=== PATIENT | female | born 1935 | race Caucasian/White ===

== ENCOUNTER → 2018-03-18 | Outpatient (CLI) | payer MEDICARE | LOC: GMAM 14:26 | PROVIDERS: ATTEND Family Medicine | DX: R51 Headache (principal); R53.83 Other fatigue ==

== ENCOUNTER → 2018-03-20 | Outpatient (CLI) | payer OTHER ==
--- NOTE | 2018-03-20 16:06 | MRI ---
EXAM DESCRIPTION: Brain w/wo Contrast: Magnetic Resonance Imaging. CLINICAL HISTORY: 82 years Female HEADACHE COMPARISON: None. TECHNIQUE: Multiplanar, high-field MRI, multiple conventional sequences, without and with gadolinium IV contrast. No adverse reactions. Multiple axial diffusion sequences. FINDINGS: Tiny bilateral small foci of hyperintense FLAIR and T2-weighted signal in the periventricular white matter, more numerous than in the alexander-white matter junctions. Normal signal in the bilateral basal ganglia. No hemorrhage, no cerebral edema, no mass-effect. Normal contrast enhancement. Normal signal in the brainstem and cerebellar hemispheres. No hemorrhage, no cerebral edema, no mass-effect. Normal contrast enhancement. Concordance of the diffusion and non-diffusion sequences with no evidence of acute or subacute infarction. Cortical sulci, ventricles, and other CSF spaces, and the subdural spaces are minimally prominent, but age appropriate. No effacement or displacement. No midline shift. No extra-axial hemorrhage. Normal contrast enhancement. Normal flow signal void in the major vessels of the [place], and the venous sinuses. IACs are symmetric bilaterally. No fluid in the bilateral mastoid air cells. No mass effect in the bilateral Cerebellopontine angles. Normal contrast enhancement. Pituitary gland occupies most of the sella. Normal contrast enhancement. Base of the cerebellar tonsils is at the level of the foramen magnum. Minimal mucoperiosteal thickening in some of the paranasal sinus cavities. No air-fluid levels. The bony calvarium is intact. Minimal susceptibility artifact in the left frontal vertex, most obvious on the T2*GRE sequence. IMPRESSION: Small bilateral symmetric white matter changes are most likely age-related, and possibly cerebral microvascular disease. No hemorrhage, no abnormal contrast enhancement, and no diffusion restriction. No extra-axial hemorrhage or fluid. Normal noncontrast MRI diffusion study with no evidence of acute or subacute infarction. Minimal chronic paranasal sinusitis. Electronically signed by: Bishnu Munoz MD 03/20/2018 4:04 PM [facility] [employer]
== END ==
LOC: MRI 10:27
PROVIDERS: ATTEND Family Medicine
DX: R51 Headache (principal)

== ENCOUNTER → 2019-08-13 | Outpatient (CLI) | payer MEDICARE | LOC: GMAM 11:48 | PROVIDERS: ATTEND Family Medicine | DX: R71.8 Other abnormality of red blood cells (principal) ==

== ENCOUNTER 2019-10-01 05:37 | Day surgery (SDC) | payer MEDICARE ==
[2019-10-01] MEDS ORDERED: LIDOCAINE 1% 10 ML VIAL INJ ONE (05:38)
[2019-10-01] MEDS ORDERED: PROPOFOL 200 MG/20 ML VIAL IV ONE (05:38)
[2019-10-01] MEDS ORDERED: LACTATED RINGERS 1,000 ML ONE (06:42)
[2019-10-01 12:02] VITALS: O2SAT 99
[2019-10-01 12:42] VITALS: BP 158/76; TEMP 97.6
--- NOTE | 2019-10-01 13:05 | OP ---
DATE OF PROCEDURE: 10/01/19 PREOPERATIVE DIAGNOSIS: 1. Hemoccult positive stool. POSTOPERATIVE DIAGNOSIS: 1. Hemoccult positive stool. PROCEDURE: 1. Colonoscopy. SURGEON: Molina Yip MD ANESTHESIA: General. FINDINGS: Normal colon. PLAN: Discharge. INDICATION: This is an 84-year-old woman with no history of known colon problems, but she came in with occult positive stools. In discussion with her and her , we do want to screen and make sure there is nothing significant in her colon. PROCEDURE: She was brought to the Operating Suite in the lateral position. General anesthesia was induced, which is monitored. She did have some external hemorrhoids, but nothing abnormal there. Digital rectal exam revealed no masses. The colonoscope was inserted and advanced all the way to the cecum as identified by the ileocecal valve and appendiceal orifice. There was a good prep. Upon withdrawal, all mucosal surfaces appeared normal. There was no significant diverticulosis, maybe just a couple of small ones and no tumor or polyps were seen. We desufflated along the way out. The patient tolerated the procedure and was taken to Recovery to be discharged. #[id number] MTDD
== END 2019-10-01 12:40 | disposition home or self-care (01) ==
LOC: AMB 05:37
PROVIDERS: ATTEND Surgery
DX: R19.5 Other fecal abnormalities (principal); K64.4 Residual hemorrhoidal skin tags; B02.9 Zoster without complications; Z79.899 Other long term (current) drug therapy
CPT/HCPCS: 00811; 45378; J3490; J7120